=== PATIENT | female | born 1995 | race Two or more races ===

== ENCOUNTER 2021-04-20 10:45 | Emergency (ER) | payer OTHER ==
[~2021-04-20] VITALS: Ht 157.5 cm; Wt 139.7 kg
[2021-04-20 11:52] VITALS: BP 128/89
[2021-04-20] MEDS ORDERED: DOXY-286 PO (12:30)
[2021-04-20] MEDS ORDERED: ALBUAER3 IN (12:30)
[2021-04-20] MEDS ORDERED: PRED20TA2 PO (12:30)
== END 2021-04-20 13:35 | disposition home or self-care (01) ==
LOC: ER 10:45
DX: J06.9 Acute upper respiratory infection, unspecified (principal); J45.909 Unspecified asthma, uncomplicated
CPT/HCPCS: 36415; 71045; 87426

== ENCOUNTER 2021-10-20 13:53 | Emergency (ER) | payer OTHER ==
[~2021-10-20 13:53] MED LIST: ALBUAER3 IN; DOXY-286 PO; PRED20TA2 PO
[2021-10-20 14:40] VITALS: BP 115/71
== END 2021-10-20 21:30 | disposition left against medical advice (07) ==
LOC: ER 13:53
DX: H92.01 Otalgia, right ear (principal); Z53.21 Procedure and treatment not carried out due to patient leaving prior to being seen by health care provider